=== PATIENT | male | born 1945 | race Caucasian/White ===

== ENCOUNTER → 2018-10-24 | Outpatient (REF) | payer MEDICARE, OTHER | LOC: M SFHCPLAZ 13:37 | PROVIDERS: ATTEND Dermatology | DX: L57.0 Actinic keratosis (principal); C44.519 Basal cell carcinoma of skin of other part of trunk; C44.719 Basal cell carcinoma of skin of left lower limb, including hip ==

== ENCOUNTER → 2018-11-11 | Outpatient (REF) | payer MEDICARE, OTHER | LOC: M SFHCPLAZ 17:07 | PROVIDERS: ATTEND Dermatology | DX: C44.619 Basal cell carcinoma of skin of left upper limb, including shoulder (principal) ==

== ENCOUNTER → 2019-01-26 | Outpatient (REF) | payer MEDICARE, OTHER | LOC: M SFHCPLAZ 10:02 | PROVIDERS: ATTEND Dermatology | DX: C44.719 Basal cell carcinoma of skin of left lower limb, including hip (principal) ==

== ENCOUNTER → 2019-02-09 | Outpatient (REF) | payer MEDICARE, OTHER | LOC: M SFHCPLAZ 18:08 | PROVIDERS: ATTEND Dermatology | DX: C44.519 Basal cell carcinoma of skin of other part of trunk (principal) ==

== ENCOUNTER → 2019-02-23 | Outpatient (REF) | payer MEDICARE, OTHER | LOC: M SFHCPLAZ 16:51 | PROVIDERS: ATTEND Dermatology | DX: L82.1 Other seborrheic keratosis (principal) ==

== ENCOUNTER → 2019-03-16 | Outpatient (REF) | payer MEDICARE, OTHER | LOC: M SFHCPLAZ 18:39 | PROVIDERS: ATTEND Dermatology | DX: C44.519 Basal cell carcinoma of skin of other part of trunk (principal); L90.5 Scar conditions and fibrosis of skin ==

== ENCOUNTER → 2019-03-30 | Outpatient (REF) | payer MEDICARE, OTHER | LOC: M SFHCPLAZ 17:44 | PROVIDERS: ATTEND Dermatology | DX: C44.619 Basal cell carcinoma of skin of left upper limb, including shoulder (principal) ==

== ENCOUNTER → 2019-05-11 | Outpatient (REF) | payer MEDICARE, OTHER | LOC: M LABDRAW1 19:08 | PROVIDERS: ATTEND Dermatology | DX: C44.519 Basal cell carcinoma of skin of other part of trunk (principal) | CPT/HCPCS: 11102; 11900; 88305; J3301 ==

== ENCOUNTER → 2019-07-25 | Outpatient (REF) | payer MEDICARE, OTHER, BC | LOC: M LAB REF 09:35 | PROVIDERS: ATTEND Dermatology | DX: C44.519 Basal cell carcinoma of skin of other part of trunk (principal) ==

== ENCOUNTER → 2019-08-21 | Outpatient (REF) | payer MEDICARE, OTHER, BC | LOC: M LAB REF 17:22 | PROVIDERS: ATTEND Dermatology | DX: C44.712 Basal cell carcinoma of skin of right lower limb, including hip (principal) | CPT/HCPCS: 11102; 17000; 17003; 88305; G0463 ==

== ENCOUNTER → 2019-12-07 | Outpatient (REF) | payer MEDICARE, BC | LOC: M LAB REF 17:25 | PROVIDERS: ATTEND Dermatology | DX: C44.310 Basal cell carcinoma of skin of unspecified parts of face (principal); D23.71 Other benign neoplasm of skin of right lower limb, including hip ==

== ENCOUNTER → 2020-01-04 | Outpatient (REF) | payer MEDICARE, BC | LOC: M LAB REF 14:30 | PROVIDERS: ATTEND Dermatology | DX: L57.0 Actinic keratosis (principal); L90.5 Scar conditions and fibrosis of skin; L57.8 Other skin changes due to chronic exposure to nonionizing radiation ==

== ENCOUNTER → 2020-04-11 | Outpatient (REF) | payer MEDICARE, BC | LOC: M LAB REF 13:44 | PROVIDERS: ATTEND Dermatology | DX: C44.612 Basal cell carcinoma of skin of right upper limb, including shoulder (principal); B07.9 Viral wart, unspecified; L57.0 Actinic keratosis; D18.01 Hemangioma of skin and subcutaneous tissue ==

== ENCOUNTER → 2020-05-28 | Outpatient (REF) | payer MEDICARE, BC | LOC: M LAB REF 17:34 | PROVIDERS: ATTEND Dermatology | DX: C44.612 Basal cell carcinoma of skin of right upper limb, including shoulder (principal) ==

== ENCOUNTER → 2020-07-16 | Outpatient (REF) | payer MEDICARE, BC | LOC: M LAB REF 15:19 | PROVIDERS: ATTEND Dermatology | DX: L90.5 Scar conditions and fibrosis of skin (principal) ==

== ENCOUNTER → 2020-11-21 | Outpatient (REF) | payer MEDICARE, BC | LOC: M LAB REF 13:52 | PROVIDERS: ATTEND Dermatology | DX: L57.0 Actinic keratosis (principal) ==

== ENCOUNTER 2021-10-25 09:07 | Observation (INO) | payer MEDICARE, BC ==
[~2021-10-25] VITALS: Ht 188 cm; Wt 111.9 kg
[2021-10-25] MEDS ORDERED: SERT150C PO (09:14)
[2021-10-25] MEDS ORDERED: PANT40TA29 PO (09:14)
[2021-10-25] MEDS ORDERED: MOME50SP2 NARES (09:14)
[2021-10-25] MEDS ORDERED: B-2100TA PO (09:14)
[2021-10-25] MEDS ORDERED: ISOVUE-370 76% 100ML VIAL As Ordered ONE (09:34)
[2021-10-25 09:50] LABS: BASO # 0.1 10^3/uL (0.0-0.2); BASO % 0.9 % (0.0-1.0); EOS # 0.6 10^3/uL (0.0-0.5); EOS % 8.1 % (0.0-3.0); HEMATOCRIT 35.3 % (42.0-52.0); HEMOGLOBIN 10.6 g/dl (13.5-17.5); LYMPH # 2.2 10^3/uL (1.5-5.0); LYMPH % 31.4 % (24.0-44.0); MEAN CORPUSCULAR HEMOGLOBIN 23.7 pg (27.0-33.0); MEAN CORPUSCULAR VOLUME 78.8 fl (80.0-96.0); MONO # 0.6 10^3/uL (0.0-0.8); MONO % 8.1 % (2.0-8.0); NEUTROPHILS # 3.6 10^3/uL (1.5-8.5); NEUTROPHILS % 51.4 % (36.0-66.0); PLATELET COUNT, AUTOMATED 284 10^3/uL (150-450); RED BLOOD COUNT 4.48 10^6/uL (4.30-6.10)
[2021-10-25 10:04] LABS: INR 0.92; PROTHROMBIN TIME 12.8 SECONDS (12.7-14.5)
[2021-10-25 10:05] LABS: PARTIAL THROMBOPLASTIN TIME 28.1 SECONDS (25.9-37.0)
[2021-10-25 10:13] LABS: CK-MB VALUE MASS 14.4 NG/ML (<3.6); MB/CK RELATIVE INDEX 2.92 (< OR =4)
[2021-10-25] MEDS ORDERED: ASPIRIN 325 MG TAB PO ONE (11:00)
[2021-10-25] MEDS ORDERED: ZOLO100T PO (11:18)
[2021-10-25] MEDS ORDERED: HOME MED LIST COMPLETE! XX SCH (11:20)
[2021-10-25 11:45] LABS: RSV AMPLIFICATION NEGATIVE (NEGATIVE)
[2021-10-25 12:41] LABS: CHOLESTEROL RISK RATIO 3.822 (<5)
[2021-10-25 14:30] VITALS: BP 164/82
[2021-10-25 22:00] VITALS: BP 162/88
[2021-10-26 06:00] VITALS: BP 158/89
[2021-10-26] MEDS ORDERED: ASPI81CH33 PO (08:47)
[2021-10-26] MEDS ORDERED: ATOR40TA75 PO (08:47)
[2021-10-26] MEDS ORDERED: PANTOPRAZOLE 40MG TAB (PROTONIX) PO SCH (09:00)
[2021-10-26] MEDS ORDERED: SERTRALINE HCL 50 MG TAB PO SCH (09:00)
== END 2021-10-26 10:41 | disposition home or self-care (01) ==
LOC: M ED 09:07 → M ED INP 09:08 → ENRESERV 13:31 → M MSPAV 14:36
PROVIDERS: ADMIT Family Medicine; ATTEND Family Medicine
DX: G45.9 Transient cerebral ischemic attack, unspecified (principal); I65.23 Occlusion and stenosis of bilateral carotid arteries; J30.9 Allergic rhinitis, unspecified; F32.9 Major depressive disorder, single episode, unspecified; G43.909 Migraine, unspecified, not intractable, without status migrainosus; Z79.82 Long term (current) use of aspirin; Z79.899 Other long term (current) drug therapy; Z87.891 Personal history of nicotine dependence
CPT/HCPCS: 70450; 70496; 70498; 70551; 71045; 80047; 80061; 82550; 82553; 83036; 84484; 85025; 85610; 85652; 85730; 86850; 86900; 86901; 87631; 93005; 93041; 93306; 94760; 99285; G0378; Q9967

== ENCOUNTER → 2022-03-11 | Outpatient (CLI) | payer MEDICARE, BC ==
[~2022-03-11] MED LIST: ASPI81CH33 PO; ATOR40TA75 PO; B-2100TA PO; MOME50SP2 NARES; PANT40TA29 PO; PRESCAP PO; SERT150C PO; ZOLO100T PO
== END ==
LOC: M LABSMTC 10:24
PROVIDERS: ATTEND Anesthesiology
DX: Z01.812 Encounter for preprocedural laboratory examination (principal); Z11.52 Encounter for screening for COVID-19

== ENCOUNTER 2022-03-16 08:54 | Day surgery (SDC) | payer MEDICARE, BC ==
[~2022-03-16] VITALS: Ht 188 cm; Wt 108.9 kg
[~2022-03-16 08:54] MED LIST changes: +LIDOCAINE 1% SDV 5ML VIAL As Ordered ONE; +LR 1,000 ML IV SCH
[2022-03-16] MEDS: TETRACAINE 0.5% OPHTH SOLN 4ML OD SCH ×2 (10:44→10:55)
[2022-03-16] MEDS: CYCLOPENTOLATE 1% OPHTH SOLN 2 ML BTL OD SCH ×3 (10:44→11:08)
[2022-03-16] MEDS: PHENYLEPHRINE 2.5% OPHTH SOL 2ML OD SCH ×3 (10:45→11:08)
[2022-03-16] MEDS: FLURBIPROFEN 0.03% OPHTH SOLN 2.5 ML OD SCH ×3 (10:45→11:08)
[2022-03-16] MEDS ORDERED: MIDAZOLAM INJ 2MG/2ML VIAL (J2250 PER 1MG) As Ordered ONE (10:58)
[2022-03-16] MEDS ORDERED: fentaNYL 100 MCG/2 ML INJECTION As Ordered ONE (10:58)
[2022-03-16 13:17] VITALS: BP 173/88
== END 2022-03-16 13:55 | disposition home or self-care (01) ==
LOC: M SDC 08:54
PROVIDERS: ATTEND Ophthalmology
DX: H25.11 Age-related nuclear cataract, right eye (principal); K21.9 Gastro-esophageal reflux disease without esophagitis; G43.909 Migraine, unspecified, not intractable, without status migrainosus; Z79.82 Long term (current) use of aspirin; Z79.899 Other long term (current) drug therapy; F32.A Depression, unspecified; J30.2 Other seasonal allergic rhinitis; Z86.73 Personal history of transient ischemic attack (TIA), and cerebral infarction without residual deficits; Z87.891 Personal history of nicotine dependence
CPT/HCPCS: 66984; J2250; J3010; V2632

== ENCOUNTER → 2022-04-08 | Outpatient (CLI) | payer MEDICARE, BC ==
[~2022-04-08] MED LIST changes: -LIDOCAINE 1% SDV 5ML VIAL As Ordered ONE; -LR 1,000 ML IV SCH
== END ==
LOC: M LABSMTC 11:10
PROVIDERS: ATTEND Anesthesiology
DX: Z01.818 Encounter for other preprocedural examination (principal); Z11.52 Encounter for screening for COVID-19

== ENCOUNTER 2022-04-13 10:53 | Day surgery (SDC) | payer MEDICARE, BC ==
[~2022-04-13] VITALS: Ht 188 cm; Wt 108.5 kg
[~2022-04-13 10:53] MED LIST changes: +LIDOCAINE 1% 1ML PF SYRINGE (OR EYE CASES) As Ordered ONE; +LR 1,000 ML IV SCH; +TETRACAINE 0.5% OPHTH SOLN 4ML OS SCH
[2022-04-13] MEDS: FLURBIPROFEN 0.03% OPHTH SOLN 2.5 ML OS SCH ×2 (13:07→13:16)
[2022-04-13] MEDS: PHENYLEPHRINE 2.5% OPHTH SOL 2ML OS SCH ×2 (13:07→13:16)
[2022-04-13] MEDS: CYCLOPENTOLATE 1% OPHTH SOLN 2 ML BTL OS SCH ×2 (13:08→13:16)
[2022-04-13] MEDS ORDERED: MIDAZOLAM INJ 2MG/2ML VIAL (J2250 PER 1MG) As Ordered ONE (13:15)
[2022-04-13] MEDS ORDERED: fentaNYL 100 MCG/2 ML INJECTION As Ordered ONE (13:15)
[2022-04-13 14:46] VITALS: BP 146/84
== END 2022-04-13 15:07 | disposition home or self-care (01) ==
LOC: M SDC 10:53
PROVIDERS: ATTEND Ophthalmology
DX: H25.12 Age-related nuclear cataract, left eye (principal); K21.9 Gastro-esophageal reflux disease without esophagitis; G43.909 Migraine, unspecified, not intractable, without status migrainosus; F32.A Depression, unspecified; Z79.82 Long term (current) use of aspirin; Z79.899 Other long term (current) drug therapy; Z86.73 Personal history of transient ischemic attack (TIA), and cerebral infarction without residual deficits; Z87.891 Personal history of nicotine dependence
CPT/HCPCS: 66984; J2250; J3010; V2632

== ENCOUNTER → 2023-01-18 | Outpatient (REF) | payer MEDICARE, BC ==
[~2023-01-18] MED LIST changes: -LIDOCAINE 1% 1ML PF SYRINGE (OR EYE CASES) As Ordered ONE; -LR 1,000 ML IV SCH; -TETRACAINE 0.5% OPHTH SOLN 4ML OS SCH
== END ==
LOC: M SFHCDERM 14:12
PROVIDERS: ATTEND Physician Assistant
DX: C44.619 Basal cell carcinoma of skin of left upper limb, including shoulder (principal)

== ENCOUNTER 2023-08-11 10:17 | Day surgery (SDC) | payer MEDICARE, BC ==
[~2023-08-11] VITALS: Ht 188 cm; Wt 104.2 kg
[~2023-08-11 10:17] MED LIST changes: +OCUVTAB4 PO; +THERTAB52 PO
[2023-08-11] MEDS: NS 1,000 ML IV ONE (11:12)
[2023-08-11] MEDS ORDERED: propofoL 200 MG/20 ML VIAL As Ordered ONE (12:13)
[2023-08-11] MEDS ORDERED: fentaNYL 100 MCG/2 ML INJECTION As Ordered ONE (12:30)
[2023-08-11] MEDS ORDERED: LIDOCAINE 2% 100MG/5ML SDV (FOR ANES.) As Ordered ONE (12:30)
[2023-08-11] MEDS ORDERED: ePHEDrine SULFATE 25 MG/5 ML(5MG/ML) SYRINGE As Ordered ONE (13:15)
[2023-08-11 13:27] VITALS: TEMP 97.2
[2023-08-11 13:43] VITALS: BP 126/71; O2SAT 95
== END 2023-08-11 14:05 | disposition home or self-care (01) ==
LOC: M OPP 10:17
PROVIDERS: ATTEND Internal Medicine Gastroenterology
DX: Z12.11 Encounter for screening for malignant neoplasm of colon (principal); Z86.010 Personal history of colon polyps; D12.6 Benign neoplasm of colon, unspecified; K64.8 Other hemorrhoids; K57.30 Diverticulosis of large intestine without perforation or abscess without bleeding; K22.70 Barrett's esophagus without dysplasia; K29.70 Gastritis, unspecified, without bleeding; B96.81 Helicobacter pylori [H. pylori] as the cause of diseases classified elsewhere; R12 Heartburn; Z87.891 Personal history of nicotine dependence; Z79.02 Long term (current) use of antithrombotics/antiplatelets; Z79.82 Long term (current) use of aspirin; Z79.899 Other long term (current) drug therapy; Z88.6 Allergy status to analgesic agent
CPT/HCPCS: 43239; 45385; 88305; J3010

== ENCOUNTER → 2024-04-14 | Outpatient (REF) | payer MEDICARE, BC | LOC: M SFHCDERM 16:53 | PROVIDERS: ATTEND Physician Assistant | DX: C44.219 Basal cell carcinoma of skin of left ear and external auricular canal (principal) ==

== ENCOUNTER → 2025-03-19 | Outpatient (REF) | payer MEDICARE, BC | LOC: M SFHCDERM 17:34 | PROVIDERS: ATTEND Physician Assistant | DX: C44.311 Basal cell carcinoma of skin of nose (principal); C41.1 Malignant neoplasm of mandible ==